=== PATIENT | male | born 1975 | race Two or more races ===

== ENCOUNTER 2023-04-06 13:14 | Emergency (ER) | payer OTHER ==
[~2023-04-06] VITALS: Ht 165.1 cm; Wt 74.8 kg
[2023-04-06 14:31] LABS: HEMATOCRIT 48.2 % (39.0-48.0); HEMOGLOBIN 16.2 g/dL (13-16.00); MEAN CELL VOLUME 89.3 fL (80.0-100.00); MEAN CORPUSCULAR HEMOGLOBIN 30.1 pg (27.00-32.0); MEAN CORPUSCULAR HGB CONC 33.6 g/dl (32.0-36.0); PLATELET COUNT 143 K/uL (150-450); RED CELL DISTRIBUTION WIDTH 14.5 % (11.5-14.5)
[2023-04-06 14:36] LABS: PH,URINE 5.5 (5.0-8.0); URINE APPEARANCE Clear; URINE BILIRRUBIN Negative (NEGATIVE); URINE BLOOD Negative; URINE COLOR Dark Yellow; URINE GLUCOSE Negative (NEGATIVE); URINE LEUKOCYTE Negative; URINE NITRATE Negative; URINE PROTEIN Trace (NEGATIVE)
[2023-04-06 14:37] LABS: URINE WBC 11.4 uL (0.0-23.2)
[2023-04-06 14:50] LABS: URINE BACTERIA 3.7 uL (0.0-1933)
[2023-04-06 14:54] LABS: CREATININE SERUM 1.07 mg/dL (0.70-1.30); GFR 73.76; POTASSIUM 4.03 mEq/L (3.5-5.1)
== END 2023-04-06 18:01 | disposition home or self-care (01) ==
LOC: ER 13:14
PROVIDERS: Emergency Medicine
DX: K52.89 Other specified noninfective gastroenteritis and colitis (principal)

== ENCOUNTER 2024-06-10 04:05 | Emergency (ER) | payer OTHER ==
[~2024-06-10] VITALS: Ht 167.6 cm; Wt 79.4 kg
[~2024-06-10 04:05] MED LIST: MULTI-VITAMIN1 EACH PO; SILDENAFIL PO
[2024-06-10] MEDS ORDERED: KETOROLAC TROMETHAMINE 60 MG VIAL IM STA (07:26)
[2024-06-10] MEDS ORDERED: GUAIFENESIN 200 MG/10 ML BLIST.PACK PO STA (07:27)
[2024-06-10] MEDS ORDERED: KETOROLAC TROMETHAMINE 60 MG VIAL IM ONE (07:42)
[2024-06-10] MEDS ORDERED: GUAIFENESIN 200 MG/10 ML BLIST.PACK PO ONE (07:43)
[2024-06-10 08:29] LABS: HEMATOCRIT 44.7 % (39.0-48.0); HEMOGLOBIN 14.9 g/dL (13-16.00); MEAN CELL VOLUME 86.8 fL (80.0-100.00); MEAN CORPUSCULAR HGB CONC 33.4 g/dl (32.0-36.0); PLATELET COUNT 165 K/uL (150-450); RED BLOOD COUNT 5.15 M/uL (4.00-6.00); RED CELL DISTRIBUTION WIDTH 15.5 % (11.5-14.5)
[2024-06-10] MEDS ORDERED: ACETAMINOPHEN500 M1 PO (10:06)
[2024-06-10] MEDS ORDERED: GILTUSS COUGH-118 M1 PO (10:06)
== END 2024-06-10 12:39 | disposition home or self-care (01) ==
LOC: ER
PROVIDERS: General Practice
DX: J06.9 Acute upper respiratory infection, unspecified (principal); J00 Acute nasopharyngitis [common cold]; Z20.822 Contact with and (suspected) exposure to COVID-19